=== PATIENT | female | born 1960 | race African-American/Black ===

== ENCOUNTER 2020-11-15 10:38 | Inpatient (IN) | payer MEDICARE, MEDICAID ==
[~2020-11-15] VITALS: Ht 160 cm; Wt 103.4 kg
[2020-11-15 11:46] LABS: BASOPHILS % 0.5 % (0.0-2.0); EOSINOPHILS % 1.4 % (0.0-5.0); HEMOGLOBIN. 12.6 g/dL (12.0-16.0); LYMPHOCYTES % 22.4 % (20.0-50.0); MEAN CORPUSCULAR HEMOGLOBIN 26.2 pg (28.0-32.0); MEAN CORPUSCULAR VOLUME 78.8 fL (81.0-99.0); MONOCYTES % 6.5 % (2.0-8.0); NEUTROPHILS % 69.2 % (40.0-76.0); PLATELET 245 x1000/uL (130-400); RED BLOOD CELL COUNT 4.82 mill/uL (4.2-5.4); RED CELL DISTRIBUTION WIDTH 15.8 % (11.6-14.6)
[2020-11-15 11:51] LABS: CHLORIDE 110 mEq/L (98-107)
[2020-11-15] MEDS ORDERED: SODIUM CHLORIDE 0.9% 1,000 ML IV ONE (12:15)
[2020-11-15] MEDS ORDERED: ONDANSETRON HCL 4MG/2ML INJ IV ONE (12:15)
[2020-11-15] MEDS ORDERED: MORPHINE SULFATE 4 MG/ML CPJ (NOT FOR IM USE) IV ONE (12:45)
[2020-11-15] MEDS ORDERED: METRONIDAZOLE 500 MG PREMIX 100 ML IV ONE (15:00)
[2020-11-15] MEDS: LEVOFLOXACIN 500MG PREMIX 100 ML IV ONE ×2 (15:00→17:06)
[2020-11-15] MEDS ORDERED: NITROGLYCERIN 0.4MG TABLET SL SL PRN (17:00)
[2020-11-15] MEDS ORDERED: ACETAMINOPHEN 325MG TABLET PO PRN (17:00)
[2020-11-15] MEDS ORDERED: IPRATROPIUM/ALBUTEROL 0.5-3(2.5)MG/3ML NEB NEB PRN (17:00)
[2020-11-15] MEDS ORDERED: ONDANSETRON HCL 4MG/2ML INJ IV PRN (17:00)
[2020-11-15] MEDS ORDERED: GUAIFENESIN 200MG/10ML SUGAR FREE UDC PO PRN (17:00)
[2020-11-15] MEDS ORDERED: MAGNESIUM/ALUMINUM HYDROXIDE/SIMETHICONE 30ML UDC PO PRN (17:00)
[2020-11-15 17:01] LABS: CLARITY URINE CLEAR (CLEAR); COLOR URINE YELLOW (YELLOW); KETONES URINE NEGATIVE (NEGATIVE); LEUKOCYTE ESTERASE URINE NEGATIVE (NEGATIVE); NITRITE URINE NEGATIVE (NEGATIVE); OCCULT BLOOD URINE NEGATIVE (NEGATIVE); PH URINE 7.5 (4.5-8.0); PROTEIN URINE TRACE (NEGATIVE); SPECIFIC GRAVITY URINE 1.012 (1.005-1.030)
[2020-11-15] MEDS ORDERED: PIPERACILLIN/TAZ 3.375G PREMIX 50 ML IV SCH (18:00)
[2020-11-15 18:30] VITALS: BP 164/78
[2020-11-15 20:30] VITALS: BP 164/70
[2020-11-15] MEDS: KETOROLAC 15MG/ML VIAL IV PRN (20:43)
[2020-11-15] MEDS: ZOLPIDEM TARTRATE 5MG TABLET PO PRN (20:43)
[2020-11-15] MEDS: CLONIDINE 0.1MG TABLET PO PRN (20:44)
[2020-11-15] MEDS: ENOXAPARIN 30MG/0.3ML SYR SUBCUT SCH (20:50)
[2020-11-15] MEDS: AMLODIPINE 10MG TABLET PO SCH (20:50)
[2020-11-15] MEDS: FAMOTIDINE 20MG TABLET PO SCH (20:53)
[2020-11-15] MEDS: SODIUM CHLORIDE 0.9% 1,000 ML IV SCH (20:53)
[2020-11-15] MEDS: PIPERACILLIN/TAZOBACTAM 3.375 G in DEXTROSE 5% WATER 50 ML IV SCH (20:54)
[2020-11-15] MEDS: HYDRALAZINE HCL 50MG TABLET PO SCH (20:54)
[2020-11-16] MEDS ORDERED: LORA2TAB95 MT (00:07)
[2020-11-16 02:10] VITALS: BP 127/46
[2020-11-16] MEDS: TRAMADOL 50MG TABLET PO PRN (02:19)
[2020-11-16] MEDS: PIPERACILLIN/TAZOBACTAM 3.375 G in DEXTROSE 5% WATER 50 ML IV SCH ×5 (02:48→22:08)
[2020-11-16] MEDS: HYDRALAZINE HCL 50MG TABLET PO SCH ×3 (05:06→22:00)
[2020-11-16] MEDS: ENOXAPARIN 30MG/0.3ML SYR SUBCUT SCH ×2 (05:06→18:00)
[2020-11-16 05:23] VITALS: BP 135/50
[2020-11-16] MEDS: SODIUM CHLORIDE 0.9% 1,000 ML IV SCH ×2 (06:35→19:40)
[2020-11-16 08:10] VITALS: BP 112/62
[2020-11-16] MEDS: AMLODIPINE 10MG TABLET PO SCH (08:32)
[2020-11-16] MEDS: FOLIC ACID 1MG TABLET PO SCH (08:33)
[2020-11-16] MEDS: DOCUSATE SODIUM 100MG CAPSULE PO PRN (08:33)
[2020-11-16 09:00] LABS: CHLORIDE 111 mEq/L (98-107)
[2020-11-16 09:06] LABS: *AMPHETAMINES SCREEN URINE NEGATIVE (NEGATIVE); *BARBITURATES SCREEN URINE NEGATIVE (NEGATIVE); *BENZODIAZEPINES SCREEN URINE NEGATIVE (NEGATIVE); *COCAINE SCREEN URINE PRESUMTIVE POSITIVE (NEGATIVE); CANNABINOID URINE SCREEN NEGATIVE (NEGATIVE); METHADONE URINE SCREEN NEGATIVE (NEGATIVE); OPIATES URINE SCREEN PRESUMTIVE POSITIVE (NEGATIVE); PHENCYCLIDINE URINE SCREEN NEGATIVE (NEGATIVE)
[2020-11-16 09:07] LABS: AMYLASE 59 IU/L (25-115)
[2020-11-16 09:11] LABS: PHOSPHORUS 3.5 mg/dL (2.5-4.9)
[2020-11-16 09:13] LABS: CREATINE KINASE 87 IU/L (26-192)
[2020-11-16 09:14] LABS: CREATINE KINASE MB FRACTION < 1.0 ng/mL (0.5-3.6)
[2020-11-16 09:17] LABS: BASOPHILS % 0.4 % (0.0-2.0); EOSINOPHILS % 2.4 % (0.0-5.0); HEMATOCRIT. 36.2 % (36.0-48.0); HEMOGLOBIN. 11.7 g/dL (12.0-16.0); LYMPHOCYTES % 33.3 % (20.0-50.0); MEAN CORPUSCULAR VOLUME 80.5 fL (81.0-99.0); MEAN PLATELET VOLUME 9.1 fl (7.4-10.4); MONOCYTES % 8.2 % (2.0-8.0); NEUTROPHILS % 55.7 % (40.0-76.0); PLATELET 213 x1000/uL (130-400); RED CELL DISTRIBUTION WIDTH 15.8 % (11.6-14.6)
[2020-11-16] MEDS: KETOROLAC 15MG/ML VIAL IV PRN (09:51)
[2020-11-16] MEDS: ACETAMINOPHEN 325MG TABLET PO PRN (10:14)
[2020-11-16 12:07] VITALS: BP 157/78
[2020-11-16] MEDS: LORAZEPAM 2MG/ML CPJ IV PRN ×2 (13:35→22:08)
[2020-11-16 15:29] VITALS: BP 125/54
[2020-11-16 20:00] VITALS: BP 140/72
[2020-11-16] MEDS: FAMOTIDINE 20MG TABLET PO SCH (21:00)
[2020-11-17 06:00] VITALS: BP 183/83
[2020-11-17] MEDS: ENOXAPARIN 30MG/0.3ML SYR SUBCUT SCH ×2 (06:00→17:00)
[2020-11-17] MEDS: HYDRALAZINE HCL 50MG TABLET PO SCH ×3 (06:00→21:29)
[2020-11-17] MEDS: CLONIDINE 0.1MG TABLET PO PRN (06:13)
[2020-11-17] MEDS: PIPERACILLIN/TAZOBACTAM 3.375 G in DEXTROSE 5% WATER 50 ML IV SCH ×4 (06:13→21:29)
[2020-11-17 08:00] VITALS: BP 137/60
[2020-11-17] MEDS: FOLIC ACID 1MG TABLET PO SCH (09:00)
[2020-11-17] MEDS: AMLODIPINE 10MG TABLET PO SCH (09:00)
[2020-11-17] MEDS: SODIUM CHLORIDE 0.9% 1,000 ML IV SCH ×2 (09:05→21:29)
[2020-11-17] MEDS: KETOROLAC 15MG/ML VIAL IV PRN ×2 (11:44→21:29)
[2020-11-17] MEDS: LORAZEPAM 2MG/ML CPJ IV PRN ×2 (13:34→23:00)
[2020-11-17] MEDS: ACETAMINOPHEN 325MG TABLET PO PRN ×2 (13:41→21:37)
[2020-11-17 16:00] VITALS: BP 103/70
[2020-11-17] MEDS: TRAMADOL 50MG TABLET PO PRN (16:49)
[2020-11-17 20:00] VITALS: BP 130/47
[2020-11-17] MEDS: FAMOTIDINE 20MG TABLET PO SCH (21:00)
[2020-11-17] MEDS: ZOLPIDEM TARTRATE 5MG TABLET PO PRN (21:29)
[2020-11-17 23:10] VITALS: BP 161/70
[2020-11-18] VITALS (7 sets, daily range): BP systolic 120–194; BP diastolic 76–90
[2020-11-18] MEDS: ENOXAPARIN 30MG/0.3ML SYR SUBCUT SCH (06:00)
[2020-11-18] MEDS: HYDRALAZINE HCL 50MG TABLET PO SCH ×2 (06:00→14:00)
[2020-11-18] MEDS: PIPERACILLIN/TAZOBACTAM 3.375 G in DEXTROSE 5% WATER 50 ML IV SCH ×3 (06:47→15:00)
[2020-11-18] MEDS: CLONIDINE 0.1MG TABLET PO PRN ×3 (06:47→17:16)
[2020-11-18] MEDS: FOLIC ACID 1MG TABLET PO SCH (09:00)
[2020-11-18] MEDS: AMLODIPINE 10MG TABLET PO SCH (09:00)
[2020-11-18] MEDS: LORAZEPAM 2MG/ML CPJ IV PRN (10:01)
[2020-11-18] MEDS: DOCUSATE SODIUM 100MG CAPSULE PO PRN (10:01)
[2020-11-18] MEDS ORDERED: LACTULOSE 300 ML in WATER FOR IRRIGATION,STERILE 700 ML IR NR (12:00)
[2020-11-18] MEDS: ACETAMINOPHEN 325MG TABLET PO PRN (12:36)
[2020-11-18] MEDS: KETOROLAC 15MG/ML VIAL IV PRN (12:37)
== END 2020-11-18 17:48 | disposition home health service (06) | DRG 391 ==
LOC: ER 10:55 → 6WST 15:54 → ENRESERV 16:18 → SUPCPDRO 16:58
PROVIDERS: ADMIT Internal Medicine; ATTEND Internal Medicine
DX: K57.32 Diverticulitis of large intestine without perforation or abscess without bleeding (principal); N17.0 Acute kidney failure with tubular necrosis; I16.1 Hypertensive emergency; E44.1 Mild protein-calorie malnutrition; Z68.41 Body mass index [BMI] 40.0-44.9, adult; F14.10 Cocaine abuse, uncomplicated; K42.9 Umbilical hernia without obstruction or gangrene; I50.9 Heart failure, unspecified; I11.0 Hypertensive heart disease with heart failure; F17.210 Nicotine dependence, cigarettes, uncomplicated; R91.1 Solitary pulmonary nodule; N26.1 Atrophy of kidney (terminal); E66.01 Morbid (severe) obesity due to excess calories; Z71.3 Dietary counseling and surveillance; Z71.51 Drug abuse counseling and surveillance of drug abuser; Z90.49 Acquired absence of other specified parts of digestive tract; Z98.891 History of uterine scar from previous surgery; Z91.14 Patient's other noncompliance with medication regimen
CPT/HCPCS: 36415; 71045; 74176; 80053; 80061; 80305; 81003; 82150; 82550; 82553; 82607; 82746; 83036; 83540; 83550; 83735; 84100; 84484; 85025; 93005; 93970; 97165; 99285; J1885; J1956; J2060; J2270; J2405; J2543; J3490; J7030; J7040; J7060

== ENCOUNTER 2020-11-23 16:07 | Inpatient (IN) | payer MEDICARE, MEDICAID ==
[~2020-11-23] VITALS: Ht 170.2 cm; Wt 125.2 kg
[~2020-11-23 16:07] MED LIST: LORA2TAB95 MT
[2020-11-23] MEDS ORDERED: MORPHINE SULFATE 4 MG/ML CPJ (NOT FOR IM USE) IV STA (17:11)
[2020-11-23] MEDS ORDERED: ONDANSETRON HCL 4MG/2ML INJ IV STA (17:11)
[2020-11-23] MEDS ORDERED: SODIUM CHLORIDE 0.9% 1,000 ML IV ONE (17:15)
[2020-11-23 18:00] LABS: CHLORIDE 104 mEq/L (98-107)
[2020-11-23 18:03] LABS: BASOPHILS % 0.4 % (0.0-2.0); EOSINOPHILS % 0.5 % (0.0-5.0); HEMATOCRIT. 45.8 % (36.0-48.0); HEMOGLOBIN. 15.4 g/dL (12.0-16.0); MEAN CORPUSCULAR HEMOGLOBIN 26.2 pg (28.0-32.0); MEAN CORPUSCULAR VOLUME 78.2 fL (81.0-99.0); MEAN PLATELET VOLUME 8.7 fl (7.4-10.4); MONOCYTES % 7.9 % (2.0-8.0); NEUTROPHILS % 66.2 % (40.0-76.0); PLATELET 344 x1000/uL (130-400); RED BLOOD CELL COUNT 5.86 mill/uL (4.2-5.4); RED CELL DISTRIBUTION WIDTH 15.6 % (11.6-14.6)
[2020-11-23 18:08] LABS: INR 1.1; PARTIAL THROMBOPLASTIN TIME 27.7 sec (23.4-31.0); PROTHROMBIN TIME 11.3 sec (9.6-11.0)
[2020-11-23] MEDS ORDERED: AMPICILLIN SOD/SULBACTAM NA 3 G in SODIUM CHLORIDE 0.9% 100 ML IV STA (19:01)
[2020-11-23] MEDS ORDERED: CLONIDINE 0.2MG TABLET PO ONE (20:30)
[2020-11-23] MEDS ORDERED: AMPICILLIN SOD/SULBACTAM NA 3 G in SODIUM CHLORIDE 0.9% 100 ML IV SCH (22:00)
[2020-11-23 23:30] VITALS: BP 141/63
[2020-11-24] MEDS ORDERED: MORPHINE SULFATE 2 MG/ML CPJ (NOT FOR IM USE) IV PRN (02:30)
[2020-11-24] MEDS: SODIUM CHLORIDE 0.9% 1,000 ML IV SCH ×2 (02:30→18:41)
[2020-11-24] MEDS ORDERED: ONDANSETRON HCL 4MG/2ML INJ IV PRN (02:30)
[2020-11-24] MEDS: CEFTRIAXONE 1,000 MG in DEXTROSE 5% WATER 50 ML IV SCH (03:00)
[2020-11-24 08:00] VITALS: BP 118/61
[2020-11-24] MEDS: METRONIDAZOLE 500 MG PREMIX 100 ML IV SCH ×2 (11:18→17:25)
[2020-11-24 11:26] LABS: BASOPHILS % 0.6 % (0.0-2.0); EOSINOPHILS % 1.9 % (0.0-5.0); HEMATOCRIT. 39.2 % (36.0-48.0); HEMOGLOBIN. 13.2 g/dL (12.0-16.0); LYMPHOCYTES % 34.3 % (20.0-50.0); MEAN CORPUSCULAR HEMOGLOBIN 26.7 pg (28.0-32.0); MEAN CORPUSCULAR VOLUME 79.2 fL (81.0-99.0); MEAN PLATELET VOLUME 8.8 fl (7.4-10.4); MONOCYTES % 10.1 % (2.0-8.0); NEUTROPHILS % 53.1 % (40.0-76.0); PLATELET 261 x1000/uL (130-400); RED BLOOD CELL COUNT 4.96 mill/uL (4.2-5.4); RED CELL DISTRIBUTION WIDTH 15.5 % (11.6-14.6)
[2020-11-24 11:26] LABS: CHLORIDE 104 mEq/L (98-107)
[2020-11-24 12:00] VITALS: BP 113/56
[2020-11-24 16:00] VITALS: BP 121/53
[2020-11-24 20:00] VITALS: BP 127/43
[2020-11-24] MEDS: ZOLPIDEM TARTRATE 5MG TABLET PO PRN (20:28)
[2020-11-25] MEDS: METRONIDAZOLE 500 MG PREMIX 100 ML IV SCH ×3 (01:59→17:11)
[2020-11-25] MEDS: CEFTRIAXONE 1,000 MG in DEXTROSE 5% WATER 50 ML IV SCH (03:00)
[2020-11-25 08:00] VITALS: BP 152/62
[2020-11-25 12:00] VITALS: BP 168/52
[2020-11-25] MEDS ORDERED: CLONIDINE 0.1MG TABLET PO PRN (14:00)
[2020-11-25] MEDS ORDERED: LORAZEPAM 2MG/ML CPJ IV NR (14:00)
[2020-11-25 16:00] VITALS: BP 130/74
[2020-11-25 20:00] VITALS: BP 155/64
[2020-11-25] MEDS: ZOLPIDEM TARTRATE 5MG TABLET PO PRN (21:38)
[2020-11-25 22:06] LABS: BASOPHILS % 0.5 % (0.0-2.0); HEMATOCRIT. 36.5 % (36.0-48.0); HEMOGLOBIN. 12.1 g/dL (12.0-16.0); LYMPHOCYTES % 34.4 % (20.0-50.0); MEAN CORPUSCULAR HEMOGLOBIN 26.1 pg (28.0-32.0); MEAN CORPUSCULAR VOLUME 78.6 fL (81.0-99.0); MEAN PLATELET VOLUME 8.8 fl (7.4-10.4); MONOCYTES % 8.4 % (2.0-8.0); NEUTROPHILS % 54.7 % (40.0-76.0); PLATELET 234 x1000/uL (130-400); RED BLOOD CELL COUNT 4.64 mill/uL (4.2-5.4); RED CELL DISTRIBUTION WIDTH 15.3 % (11.6-14.6)
[2020-11-25 22:20] LABS: CHLORIDE 108 mEq/L (98-107)
[2020-11-26] MEDS: METRONIDAZOLE 500 MG PREMIX 100 ML IV SCH ×4 (02:00→16:59)
[2020-11-26] MEDS: CEFTRIAXONE 1,000 MG in DEXTROSE 5% WATER 50 ML IV SCH ×2 (02:52→05:15)
[2020-11-26 04:00] VITALS: BP 138/56
[2020-11-26 06:58] LABS: BASOPHILS % 0.6 % (0.0-2.0); HEMATOCRIT. 38.8 % (36.0-48.0); HEMOGLOBIN. 12.9 g/dL (12.0-16.0); LYMPHOCYTES % 35.9 % (20.0-50.0); MEAN CORPUSCULAR HEMOGLOBIN 26.3 pg (28.0-32.0); MEAN CORPUSCULAR VOLUME 79.2 fL (81.0-99.0); MEAN PLATELET VOLUME 9.1 fl (7.4-10.4); MONOCYTES % 7.1 % (2.0-8.0); NEUTROPHILS % 54.4 % (40.0-76.0); PLATELET 246 x1000/uL (130-400); RED CELL DISTRIBUTION WIDTH 15.1 % (11.6-14.6)
[2020-11-26 08:04] VITALS: BP 144/95
[2020-11-26 12:00] VITALS: BP 114/69
[2020-11-26 16:00] VITALS: BP 132/75
[2020-11-26 16:40] VITALS: BP 132/75
== END 2020-11-26 19:55 | disposition home or self-care (01) | DRG 392 ==
LOC: ER 16:07 → 6EST 20:31 → ENRESERV 22:51
PROVIDERS: ADMIT Family Medicine; ATTEND Family Medicine
DX: K57.32 Diverticulitis of large intestine without perforation or abscess without bleeding (principal); Z68.41 Body mass index [BMI] 40.0-44.9, adult; E66.9 Obesity, unspecified; E86.0 Dehydration; I11.0 Hypertensive heart disease with heart failure; I50.9 Heart failure, unspecified; Z90.49 Acquired absence of other specified parts of digestive tract; Z79.899 Other long term (current) drug therapy
CPT/HCPCS: 36415; 71045; 74176; 80048; 80053; 84484; 85025; 86850; 86900; 93005; 99285; J0295; J0696; J2060; J2270; J2405; J3490; J7030; J7050; J7060

== ENCOUNTER 2021-02-15 18:03 | Emergency (ER) | payer OTHER, MEDICAID ==
[~2021-02-15] VITALS: Ht 167.6 cm; Wt 113.0 kg
[2021-02-15] MEDS ORDERED: ACETAMINOPHEN 325MG TABLET PO STA (19:02)
[2021-02-15] MEDS ORDERED: FUROSEMIDE 40MG/4ML VIAL IV ONE (19:15)
[2021-02-15] MEDS ORDERED: ASPIRIN 81MG TABLET PO ONE (19:15)
[2021-02-15] MEDS ORDERED: NITROGLYCERIN OINT 1GM/INCH UDPKT TD ONE (19:15)
[2021-02-15] MEDS ORDERED: LORAZEPAM 0.5MG TABLET PO ONE (19:15)
[2021-02-15 19:22] LABS: BASOPHILS % 0.8 % (0.0-2.0); HEMATOCRIT. 39.5 % (36.0-48.0); HEMOGLOBIN. 13.3 g/dL (12.0-16.0); LYMPHOCYTES % 34.3 % (20.0-50.0); MEAN CORPUSCULAR HEMOGLOBIN 26.9 pg (28.0-32.0); MEAN CORPUSCULAR VOLUME 79.8 fL (81.0-99.0); MEAN PLATELET VOLUME 8.7 fl (7.4-10.4); MONOCYTES % 7.5 % (2.0-8.0); NEUTROPHILS % 54.4 % (40.0-76.0); PLATELET 245 x1000/uL (130-400); RED BLOOD CELL COUNT 4.95 mill/uL (4.2-5.4); RED CELL DISTRIBUTION WIDTH 16.6 % (11.6-14.6)
[2021-02-15 19:28] LABS: CHLORIDE 110 mEq/L (98-107)
[2021-02-15 19:30] LABS: INR 0.9
[2021-02-15 22:31] LABS: *AMPHETAMINES SCREEN URINE NEGATIVE (NEGATIVE); *BARBITURATES SCREEN URINE NEGATIVE (NEGATIVE); *BENZODIAZEPINES SCREEN URINE NEGATIVE (NEGATIVE); *COCAINE SCREEN URINE PRESUMTIVE POSITIVE (NEGATIVE)
[2021-02-15 22:32] LABS: METHADONE URINE SCREEN NEGATIVE (NEGATIVE); OPIATES URINE SCREEN NEGATIVE (NEGATIVE); PHENCYCLIDINE URINE SCREEN NEGATIVE (NEGATIVE)
[2021-02-15 22:33] LABS: CANNABINOID URINE SCREEN NEGATIVE (NEGATIVE)
[2021-02-16 00:42] VITALS: BP 154/74
== END 2021-02-16 01:08 | disposition short-term general hospital (02) ==
LOC: ER 18:03 → CANBEDREQ 02-16 03:38
DX: I11.0 Hypertensive heart disease with heart failure (principal); I50.9 Heart failure, unspecified; R07.9 Chest pain, unspecified; I42.8 Other cardiomyopathies; R79.89 Other specified abnormal findings of blood chemistry; F17.210 Nicotine dependence, cigarettes, uncomplicated; Z20.822 Contact with and (suspected) exposure to COVID-19; Z98.890 Other specified postprocedural states; J44.9 Chronic obstructive pulmonary disease, unspecified
CPT/HCPCS: 36415; 71045; 80053; 80305; 83880; 84484; 85025; 85610; 93005; 96374; 99285; C9803; J1940; U0003; U0005

== ENCOUNTER 2021-03-05 20:27 | Emergency (ER) | payer OTHER, MEDICAID ==
[~2021-03-05] VITALS: Ht 167.6 cm; Wt 125.0 kg
[2021-03-05] MEDS ORDERED: PREDNISONE 20MG TABLET PO STA (21:08)
[2021-03-05] MEDS ORDERED: FUROSEMIDE 20MG/2ML VIAL IVP ONE (21:15)
[2021-03-05] MEDS ORDERED: ALBUTEROL (0.083%) 2.5MG/3ML NEB HHN SCH (21:30)
[2021-03-05] MEDS ORDERED: LORAZEPAM 0.5MG TABLET PO ONE (21:45)
[2021-03-05 22:06] LABS: CHLORIDE 109 mEq/L (98-107)
[2021-03-05 22:07] LABS: BASOPHILS % 0.6 % (0.0-2.0); EOSINOPHILS % 1.3 % (0.0-5.0); HEMATOCRIT. 40.8 % (36.0-48.0); HEMOGLOBIN. 13.1 g/dL (12.0-16.0); MEAN CORPUSCULAR HEMOGLOBIN 26.3 pg (28.0-32.0); MEAN CORPUSCULAR VOLUME 82.2 fL (81.0-99.0); MEAN PLATELET VOLUME 8.8 fl (7.4-10.4); MONOCYTES % 7.8 % (2.0-8.0); NEUTROPHILS % 67.3 % (40.0-76.0); PLATELET 258 x1000/uL (130-400); RED BLOOD CELL COUNT 4.97 mill/uL (4.2-5.4); RED CELL DISTRIBUTION WIDTH 16.3 % (11.6-14.6)
[2021-03-05] MEDS ORDERED: LORAZEPAM 1MG TABLET PO ONE (23:00)
[2021-03-06 02:09] VITALS: BP 104/68
== END 2021-03-06 02:19 | disposition short-term general hospital (02) ==
LOC: ER 20:27
DX: I11.0 Hypertensive heart disease with heart failure (principal); I50.9 Heart failure, unspecified; J44.9 Chronic obstructive pulmonary disease, unspecified; E11.9 Type 2 diabetes mellitus without complications; F17.290 Nicotine dependence, other tobacco product, uncomplicated; F14.10 Cocaine abuse, uncomplicated; Z20.822 Contact with and (suspected) exposure to COVID-19
CPT/HCPCS: 36415; 71045; 80053; 83880; 84484; 85025; 87426; 93005; 96374; 99285; J1940; J7512

== ENCOUNTER 2021-03-18 22:37 | Emergency (ER) | payer OTHER, MEDICAID ==
[~2021-03-18] VITALS: Ht 162.6 cm; Wt 77.0 kg
[2021-03-18 23:57] LABS: BASOPHILS % 0.7 % (0.0-2.0); EOSINOPHILS % 1.6 % (0.0-5.0); HEMATOCRIT. 39.4 % (36.0-48.0); HEMOGLOBIN. 12.7 g/dL (12.0-16.0); LYMPHOCYTES % 28.7 % (20.0-50.0); MEAN CORPUSCULAR HEMOGLOBIN 26.4 pg (28.0-32.0); MEAN CORPUSCULAR VOLUME 81.8 fL (81.0-99.0); MEAN PLATELET VOLUME 8.9 fl (7.4-10.4); MONOCYTES % 5.2 % (2.0-8.0); NEUTROPHILS % 63.8 % (40.0-76.0); PLATELET 272 x1000/uL (130-400); RED BLOOD CELL COUNT 4.82 mill/uL (4.2-5.4); RED CELL DISTRIBUTION WIDTH 16.2 % (11.6-14.6)
[2021-03-19] MEDS ORDERED: PREDNISONE 20MG TABLET PO ONE (00:45)
[2021-03-19] MEDS ORDERED: ALBUTEROL 6.7GM HFA INHALER ORI ONE (00:45)
[2021-03-19 00:53] LABS: CHLORIDE 113 mEq/L (98-107)
[2021-03-19] MEDS ORDERED: AZITHROMYCIN 500 MG TABLET PO ONE (04:45)
[2021-03-19 04:57] VITALS: BP 130/74
== END 2021-03-19 04:57 | disposition short-term general hospital (02) ==
LOC: ER 22:37
DX: R06.02 Shortness of breath (principal); J44.1 Chronic obstructive pulmonary disease with (acute) exacerbation; I11.0 Hypertensive heart disease with heart failure; I50.9 Heart failure, unspecified; H54.8 Legal blindness, as defined in USA; Z91.14 Patient's other noncompliance with medication regimen
CPT/HCPCS: 36415; 71045; 80053; 83880; 84484; 85025; 93005; 94640; 99285

== ENCOUNTER 2021-05-05 19:18 | Emergency (ER) | payer OTHER, MEDICAID ==
[~2021-05-05] VITALS: Ht 167.6 cm; Wt 114.0 kg
[2021-05-05 19:32] VITALS: BP 210/108
== END 2021-05-05 21:32 | disposition left against medical advice (07) ==
LOC: ER 19:18 → CANBEDREQ 22:32
DX: R06.00 Dyspnea, unspecified (principal); I13.0 Hypertensive heart and chronic kidney disease with heart failure and stage 1 through stage 4 chronic kidney disease, or unspecified chronic kidney disease; N18.9 Chronic kidney disease, unspecified; I50.9 Heart failure, unspecified; J44.9 Chronic obstructive pulmonary disease, unspecified; H54.8 Legal blindness, as defined in USA
CPT/HCPCS: 99283

== ENCOUNTER 2022-01-15 11:41 | Emergency (ER) | payer MEDICAID, OTHER ==
[~2022-01-15] VITALS: Ht 165.1 cm; Wt 90.0 kg
[2022-01-15 12:37] VITALS: BP 219/90
[2022-01-15 12:43] LABS: BASOPHILS % 0.7 % (0.0-2.0); EOSINOPHILS % 2.4 % (0.0-5.0); HEMATOCRIT. 44.6 % (36.0-48.0); HEMOGLOBIN. 14.4 g/dL (12.0-16.0); MEAN CORPUSCULAR HEMOGLOBIN 26.4 pg (28.0-32.0); MEAN CORPUSCULAR VOLUME 81.5 fL (81.0-99.0); MEAN PLATELET VOLUME 9.1 fl (7.4-10.4); NEUTROPHILS % 59.9 % (40.0-76.0); PLATELET 236 x1000/uL (130-400); RED BLOOD CELL COUNT 5.46 mill/uL (4.2-5.4)
[2022-01-15 12:56] LABS: CHLORIDE 111 mEq/L (98-107)
== END 2022-01-15 14:45 | disposition home or self-care (01) ==
LOC: ER 11:57
DX: R06.00 Dyspnea, unspecified (principal); I11.0 Hypertensive heart disease with heart failure; I50.9 Heart failure, unspecified; J44.9 Chronic obstructive pulmonary disease, unspecified; F41.9 Anxiety disorder, unspecified
CPT/HCPCS: 36415; 71045; 80053; 83880; 85025; 85379; 93005; 99285